=== PATIENT | female | born 1950 | race Caucasian/White ===

== ENCOUNTER → 2018-09-23 12:36 | Outpatient (CLI) | payer MEDICARE, SELFPAY ==
[2018-09-23 14:34] LABS: Alanine Aminotransferase 33 IU/L (9-52); Albumin 4.2 g/dL (3.5-5.0); Albumin Globulin Ratio 1.6 (1.0-2.8); Alkaline Phosphatase 62 U/L (38-126); Aspartate Aminotransferase 26 IU/L (14-36); BUN Creatinine Ratio 22.9 (6-22); Bilirubin Total 0.5 mg/dL (0.2-1.3); Blood Urea Nitrogen 16 mg/dL (7-17); Calcium 9.6 mg/dL (8.4-10.2); Carbon Dioxide 31 mmol/L (22-32); Chloride 101 mmol/L (98-107); Cholesterol 178 mg/dL (140-199); Estimated Glomerular Filt Rate > 60.0 mL/min (>60); Globulin 2.6 g/dL (1.7-4.1); Glucose 100 mg/dL (80-110); HDL Cholesterol 72 mg/dL (40-60); HEMOLYSIS < 15 (0-50); LDL Cholesterol Calculated 81 mg/dL (<100); Potassium 4.3 mmol/L (3.4-5.1); Sodium 140 mmol/L (137-145); Total Protein 6.8 g/dL (6.3-8.2); Triglycerides 123 mg/dL (35-150)
== END ==
PROVIDERS: Family Provider Family Medicine; PCP Family Medicine; Visit Provider Family Medicine
DX: I10 Essential (primary) hypertension (principal); E66.9 Obesity, unspecified
CPT/HCPCS: 36415; 80053; 80061

== ENCOUNTER 2018-11-19 06:41 | Day surgery (SDC) | payer MEDICARE, SELFPAY ==
[2018-11-16 11:51] VITALS: BMI 31.9
[2018-11-19] VITALS (9 sets, daily range): BP systolic 71–136; BP diastolic 41–81; PULSE 57–70; RESP 11–16; TEMP 36.1–36.4; O2SAT 92–100; BMI 31.9
--- NOTE | 2018-11-19 | DI.RAD.S_ITS ---
PROCEDURE: XR ANKLE RT MIN 3V INDICATIONS: Intraoperative imaging for ankle surgery. TECHNIQUE: 7 intraoperative fluoroscopic spot views of the ankle were acquired. COMPARISON: None. FINDINGS: Bones: No fractures or dislocations. There has been hardware fixation with a lateral compression plate and medial malleolar lag screw. There is widening of the syndesmosis. Subsequent imaging demonstrates pin traversing the syndesmosis with placement of syndesmotic band and anatomic realignment of syndesmosis and ankle mortise. Soft tissues: No unexpected changes. IMPRESSION: Intraoperative fluoroscopy for placement of syndesmotic band and realignment of ankle mortise. Dictated by: Alecia Reynolds M.D. on 11/19/2018 at 13:16 Approved by: Alecia Reynolds M.D. on 11/19/2018 at 13:18
--- NOTE | 2018-11-19 07:01 | PM.PREOP ---
Pre-operative Note Interval Note History & Physical reviewed/Exam performed by Physician: Yes Changes to H&P: No
[2018-11-19] MEDS: fentaNYL 100 MCG/2 ML INJ 50 MCG IV ×2 (07:30→07:47)
[2018-11-19] MEDS: MIDAZOLAM 2 MG/2 ML VIAL 0.5 MG IV ×2 (07:30→07:47)
--- NOTE | 2018-11-19 07:46 | P.OP_ITS ---
Operative Date/Time/Diagnoses Date of procedure: 11/19/18 Time of procedure: 08:30 Pre-op diagnosis: Closed trimalleolar ankle fracture right, S82.851 Syndesmotic disruption right ankle s 93.431 Mechanical complication associated with orthopedic device, loss of reduction brady t 84.498 Post-op diagnosis: same Procedure & Clinicians Procedure: 1. Open reduction internal fixation syndesmosis ankle right CPT code 41036 2. Removal implant deep right CPT code 32024 3. Exam under anesthesia ankle right CPT code 53969 Same procedure as scheduled: Yes Indications: Operative indications: The patient has an unstable and displaced right trimalleolar ankle fracture. She had surgery in [place] on 10/20/2018 but has shown evidence of medial clear space widening and unstable syndesmosis and was indicated for surgical reduction and stabilization. The patient was counseled regarding the rationale for this and the risks of surgery. The risks include infection, bleeding, damage to nerves and blood vessels, or tendons, wound dehiscence, malunion, nonunion, persistence of pain, posttraumatic arthritis, DVT, PE, inability to return to her desired level of function, hardware breakage or prominence, generalized dissatisfaction with the procedure, need for additional procedures, cardiopulmonary complications and . The patient expressed understanding of all the risks and elected to proceed. Consent was signed in the office. Patient understands that recovery is variable and may require up to a 1 year. The patient also understands that it is critical to strictly elevate the operative leg for the 1st 2 weeks after surgery to control swelling and pain. The patient was counseled that no way will be allowed on the surgical leg for approximately 6 weeks or until the patient is instructed that it is safe to initiate weight-bearing. The patient expressed full understanding of all these issues would like to proceed with surgery. The patient was additionally counseled on cessation of all nicotine products to promote bone and wound healing. DVT prophylaxis was discussed and will be completed with aspirin 325 mg b.i.d. starting postoperative day 1. She has no personal history of blood clots and is not on hormone replacement she does not smoke. Surgeon: Marissa Worrell Click Yes if Unassisted: Yes Anesthesia Type: General and Peripheral nerve block Operative Notes Findings: Exam under anesthesia demonstrated widening of the syndesmosis and medial clear space consistent with syndesmosis disruption. Open exposure of the anterior syndesmosis demonstrated diastasis and gross motion above physiologic limits. The ATFL was attenuated with heavy scarring. The syndesmosis was debrided the joint also exposed and the Angelia sign inspected and reduced. Reduction of the syndesmosis was evaluated directly and on fluoroscopic imaging and then secured with an Arthrex suture button device. Repeat examination under anesthesia with fluoroscopy and direct visualization demonstrated a stable syndesmosis. Closure Type: primary Specimen(s): none sent Prosthetic devices, grafts, tissues, transplants, or devices: Arthrex tight rope suture button device Applied: other (Splint) Estimated Blood Loss (mL): 2 Blood products transfused: none Tourniquet time (min): 44 Procedure in detail: In the preoperative holding area, the appropriate limb and sites were marked, consent was again reviewed with the patient and all questions answered. The patient was brought to the operating room, placed on the operating table and given anesthetic. Following successful levels of anesthesia, the patient was appropriately padded, position secured to the table. An SCD was placed on the contralateral leg. All bony prominences were well padded. A well-padded thigh tourniquet was placed. The surgical leg was then prepped and draped in the usual sterile fashion. A formal time-out procedure was completed confirming the patient, site and side of surgery and administration of appropriate preoperative antibiotics. All were in agreement. Patient had a preoperative peripheral nerve block placed by the anesthesia team for postoperative pain control. Exam under anesthesia: Large fluoroscopy unit was brought into the operative field sterilely. A live exam under fluoroscopic visualization in AP and mortise imaging with external rotation stress testing demonstrated widening of the syndesmosis and clear space. Once this was confirmed decision was made to proceed with open reduction internal fixation of the syndesmosis. An Esmarch bandage was utilized to exsanguinate the limb and the tourniquet was raised on the thigh to 300 mmHg. Attention was turned to the patient's previous lateral incision over the fibula. Using the fluoroscopy unit to the level of the fracture 4th most distal screw and incisura and fibular tip were marked out. The distal 2/3 of the incision was reopened from the level of the 4th screw to the fibular tip. Care was taken to dissect between the subcutaneous and deep tissues and a flap was retracted medially to expose the syndesmosis. There was a small but several mm diastasis noted at the syndesmosis and a [place] was easily passed. The AITFL remnants were torn and there was a scar tissue. The joint was exposed the talar dome demonstrated no evidence of osteochondral defect. The syndesmosis was debrided and reduced restoring the Angelia sign at the joint line. This was done with thumb pressure and then a 2.0 K-wire was placed to hold the fixation. Fluoroscopic evaluation confirmed reduction of the syndesmosis and symmetric mortise space is proximally and medially. A lateral image was taken and compared to a lateral of the contralateral side previously obtained. With a appropriate reduction attention turned to placement of permanent syndesmotic fixation. Hardware removal: To achieve an appropriate position 2-1/2 cm above the joint line the 4th small frag screw from the distal aspect of the plate was selected as the site for suture button device placement. Therefore dissection was completed through the soft tissues directly over the plate through the previous lateral wound to expose the 4th screw. This was removed with the small frag screwdriver and explanted. ORIF syndesmosis: Next the solid drill for the Arthrex tight rope XP device was drilled directly through the fibula to the tibia in a Quadra cortical fashion making sure there was good central bone purchase parallel to the joint line. This was completed under fluoroscopic guidance. Next the suture button device and delivery instruments were passed through the drill hole and out the medial cortex. The device was deployed and the sutures released. The button was slid down to bone and tightened. The K-wire was removed and final tightening completed. Final fluoroscopic imaging was obtained in the AP mortise and lateral planes confirming reduction and hardware placement and appropriate improved alignment of the mortise with symmetric proximal and medial clear spaces. The tourniquet was released and hemostasis achieved. The sutures were cut the wound was irrigated with copious saline. Two 0 Vicryl suture was used to repair the AI TFL remnants. Wound was closed in layers with 2 O Vicryl 3 O Vicryl 4 0 Monocryl and 3 O nylon. A Xeroform gauze Webril ABD pad and well-padded stirrup splint was placed. Patient was woken from anesthesia and taken to the PACU in good condition. There no immediate complications from this procedure. All counts were correct. Complications: none Condition: stable Disposition: PACU Plan for aftercare: Postoperative plan: Patient will be nonweightbearing on the surgical leg. They will start taking aspirin 325 mg b.i.d. for DVT prophylaxis on postop day 1, while she is nonweightbearing. The patient will follow up in 2 weeks for wound check and change to boot. At this time we will go into a boot start early range of motion will continue to be nonweightbearing. X-ray will be taken.
[2018-11-19] MEDS: CEFAZOLIN 2 GM/100 ML FROZ.PIGGY IV (08:08)
--- NOTE | 2018-11-19 08:28 | SUR.OPER ---
Supine on padded OR bed, head on pillow, arms secured on padded arm boards at <90 degrees abduction, legs uncrossed, safety belt at abdomen, tape over blanket over left lower leg. Right leg elevated on bath blankets and under control of surgeon.
[2018-11-19] MEDS: LACTATED RINGERS 1,000 ML 42 ML IV (08:54)
--- NOTE | 2018-11-19 08:59 | SUR.PREOP ---
Block start time [0730] . Monitoring initiated and maintained throughout procedure. Oxygen and medications given per anesthesiologist instructions. Patient remained stable throughout procedure, no adverse reactions noted. Block end time [0756].
[2018-11-19] MEDS: OXYCODONE IR 5 MG TABLET PO (11:06)
== END 2018-11-19 11:32 | disposition home or self-care (01) ==
PROVIDERS: Family Provider Family Medicine; PCP Family Medicine; Visit Provider Orthopaedic Surgery Foot and Ankle Surgery
PROC: 0SSF04Z Reposition Right Ankle Joint with Internal Fixation Device, Open Approach (ICD-10-PCS; CPT 27829; principal; 2018-11-19 07:45)
DX: T84.223A Displacement of internal fixation device of bones of foot and toes, initial encounter (principal); S82.851A Displaced trimalleolar fracture of right lower leg, initial encounter for closed fracture; W10.8XXA Fall (on) (from) other stairs and steps, initial encounter; I10 Essential (primary) hypertension; R73.03 Prediabetes; G89.18 Other acute postprocedural pain
CPT/HCPCS: 27829; 20680; 64450; 73610; 76000; J0690; J1100; J2250; J2704; J3010

== ENCOUNTER → 2022-11-06 14:50 | Outpatient (CLI) | payer MEDICARE, SELFPAY ==
--- NOTE | 2022-11-06 | DI.MG.S_ITS ---
BILATERAL DIGITAL SCREENING MAMMOGRAM 3D/2D WITH CAD: 11/06/2022 CLINICAL: Routine screening. Family history of breast cancer. Comparison is made to exams dated: 09/08/2016 mammogram, 09/07/2015 mammogram, 06/28/2014 mammogram, and 05/24/2013 mammogram - [facility]. There are scattered areas of fibroglandular density in both breasts (category b / 25%-50% glandular tissue). Current study was also evaluated with a Computer Aided Detection (CAD) system. There is a benign intramammary node in the right breast. No significant masses, calcifications, or other findings are seen in either breast. There has been no significant interval change. IMPRESSION: BENIGN There is no mammographic evidence of malignancy. A 1 year screening mammogram is recommended. Based on the Tyrer Cuzick model (a risk assessment model) the patient's lifetime risk is 5.9% and her 10 year risk is 4.9%. According to the ACR, ACS, and NCCN guidelines, an annual breast MRI exam along with mammogram is recommended if the patient's lifetime risk is 20% or greater. This exam was interpreted at Station ID: [id number]. NOTE: For mammograms, a report in lay terms will be sent to the patient. Approximately 15% of breast malignancies will not be visualized mammographically. In the management of a palpable breast mass, a negative mammogram must not discourage biopsy of a clinically suspicious lesion. Electronically Signed By: Demarco aguilera/jeannie:11/06/2022 16:11:56 letter sent: Normal Exam ACR BI-RADS Category 2: Benign Finding(s) 3342F
== END ==
PROVIDERS: Family Provider Family Medicine; PCP Internal Medicine; Referring Provider Internal Medicine; Visit Provider Internal Medicine
DX: Z12.31 Encounter for screening mammogram for malignant neoplasm of breast (principal); Z80.3 Family history of malignant neoplasm of breast
CPT/HCPCS: 77063; 77067

== ENCOUNTER 2023-02-16 12:00 | Outpatient (RCR) | payer MEDICARE, SELFPAY ==
--- NOTE | 2023-01-07 14:59 | PT.OIE ---
Current Diagnoses Stiffness of right hip, not elsewhere classified (01/07/23) Stiffness of left hip, not elsewhere classified (01/07/23) Stiffness of other specified joint, not elsewhere classified (01/07/23) Low back pain, unspecified (01/07/23) Past Medical History (Last Updated 11/16/18 @ 14:35 by Bri Hinojosa RN) Ankle fracture, right (10/20/18) Depression Fall (10/20/18) HTN (hypertension) Hypokalemia Past Surgical History History of carpal tunnel repair Status post tubal ligation Visit Care Team Role Provider Type Shefali Cunningham MD Attending Provider Physician Family Provider Primary Care Provider Referring Provider Specialty: Internal Medicine Address: [place], [place], [facility] Phone: Email: Physical Therapy Initial Evaluation PT-OP-A Visit Information Start: 01/07/23 17:31 Freq: Status: Active Protocol: Document 01/07/23 14:00 DCW (Rec: 01/07/23 17:39 DCW [id number]) Out-Patient Physical Therapy Visit Information Visit Information Visit Type Initial Evaluation Visit Start Time 14:00 Visit Stop Time 14:45 Total Visit Minutes 45 Visit Number 1 Number of CARD FIXER Visits 0 Evaluation Information Evaluation Date 01/07/23 PT-OP-B Current Condition Start: 01/07/23 17:31 Freq: Status: Active Protocol: Document 01/07/23 14:00 DCW (Rec: 01/07/23 17:39 DCW [id number]) Current Condition History of Current Condition Onset Date A few year history Current Complaints Low back soreness, zing into bilateral posterior hips occasionally History of Current Condition Pt is a 72 year old female presenting with a multi-year history of low back pain, with reports a 4-5x daily brief zing of pain into her posterior hips bilaterally. 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 Does improve with rest and sitting, however zing can still occur when sitting. Pt reports she [place] out of state half the year, and while gone, was recently treated for piriformis syndrome. Pt reports she is no longer getting that same pain. Treatment Goals Patient/Caregiver Goals I want to get stretching exercises so it doesn't bug me all the time. PT-OP-C Subjective Start: 01/07/23 17:31 Freq: Status: Active Protocol: Document 01/07/23 14:00 DCW (Rec: 01/07/23 17:39 DCW [id number]) OP-PT Subjective Patient Comments Patient Comments It seems to 'zing' down pretty consistently no matter what I do, but the soreness gets worse with activity. Even going on a walk with my dog, I'm sore by the end of it. Patient Questionnaires Oswestry Low Back Index Oswestry Score 9/50 = 18% Oswestry Impairment 1 to 19% Impaired (Score 1-19) OP-PT Pain Assessment Location Bilateral Lower Back Intensity 4 Scale Used Numeric (0 - 10) Description Aching,Dull PT-OP-F Manual Assessment Start: 01/07/23 17:31 Freq: Status: Active Protocol: Document 01/07/23 14:00 DCW (Rec: 01/07/23 17:54 DCW [id number]) Manual Assessments Soft Tissue Assessment Soft Tissue Mobility Assessment Moderate tone and tenderness to palpation 2/4: pain with wincing along bilateral lumbar paraspinals, hamstrings, piriformism and hip flexors PT-OP-K Range of Motion Start: 01/07/23 17:31 Freq: Status: Active Protocol: Document 01/07/23 14:00 DCW (Rec: 01/07/23 17:54 DCW [id number]) Lumbar Spine Range of Motion Lumbar Spine Active Degrees Testing Position Standing Flexion 45 Extension 10 ROM Limitations Soft Tissue Tightness,Muscle Tone PT-OP-L Special Tests Start: 01/07/23 17:31 Freq: Status: Active Protocol: Document 01/07/23 14:00 DCW (Rec: 01/07/23 17:54 DCW [id number]) Special Tests Lumbar Spine Special Tests Ash Test Results Positive bilaterally Straight Leg Raise Test Results Hamstring tightness bilaterally at 65? Slump Test Results Negative Compression Test Results Negative A-P Shearing Test Results Negative Hip Special Tests Piriformis Test Results Positive bilaterally KENRICK Test Results Negative Merna's Test Test Results Positive bilaterally PT-OP-M Strength Start: 01/07/23 17:31 Freq: Status: Active Protocol: Document 01/07/23 14:00 DCW (Rec: 01/07/23 17:54 DCW [id number]) Hip Strength Hip Manual Muscle Testing Right Flexion (L2) 4- Good- Abduction 4- Good- Adduction 4- Good- Left Flexion (L2) 3+ Fair+ Abduction 4- Good- Adduction 4- Good- Knee Strength Knee Manual Muscle Testing Right Flexion (S2) 4+ Good+ Extension (L3) 4+ Good+ Left Flexion (S2) 4+ Good+ Extension (L3) 4+ Good+ PT-OP-Q Treatments Start: 01/07/23 17:31 Freq: Status: Active Protocol: Document 01/07/23 14:00 DCW (Rec: 01/07/23 17:41 DCW [id number]) Therapeutic Exercises Supine Exercises Hip Flexor stretch Supine Exercise Name Hip flexor stretch with leg off table Side bilateral Hamstring stretch Supine Exercise Name HS stretch Side bilateral Sitting Exercises Piriformis stretch Sitting Exercise Name Seated figure-4 Side bilateral PT-OP-T Assessment and Plan Start: 01/07/23 17:31 Freq: Status: Active Protocol: Document 01/07/23 14:00 DCW (Rec: 01/08/23 15:59 DC [id number]) Physical Therapy Assessment Rehab Potential Rehabilitation Potential Good Evaluation Complexity Number of Personal Factors/Comorbidities 3 or More Number of Body Systems Impaired 3 Clinical Presentation at Evaluation Unstable Impairments Impairments Functional Activities, Functional Mobility,Pain,ROM, Soft Tissue Mobility,Strength, Tone Goals Two Impairment LE MMT reveals bilateral hip weakness (4-/5 or weaker) in all planes Detention Goal (LTG) Pt to present with B LE MMT at least 4/5 in order to demonstrate improved hip strength in order to improve stability and tone throughout hip and low back musculature LTG Duration 03/11/23 One Impairment Pt does not have an appropriate home exercise program Short Term Goal (STG) Pt to be independent and compliant with an appropriate HEP STG Duration 02/08/23 Assessment Summary Assessment Pt presents with signs and symptoms consistent with referring diagnosis. Unable to replicate any of pt's back pain or zinging sensation down into posterior hip with special testing today, lumbar vertebrae show relatively appropriate mobility with ROM and joint mobilizations. Pt does present with significant increase in muscle tone bilaterally around low back and hips, especially paraspinals, hip flexors, and piriformis. Positive Merna and Ash test indicate very tight hip flexors, which may be causing at least some of pt 's low back pain and stiffness due to psoas origin along the lumbar spine. Additionally, pt exhibits general hip weakness, testing at 4-/5 with right flexion and bilateral abd/add, as well as 3+/5 with left flexion. Pt will likely benefit from skilled therapy focusing on LE strengthening and STM/flexibility to decrease overall tone throughout musculature. Physical Therapy Plan Frequency and Duration Frequency of Treatment 2x/Week Plan of Care Start Date 01/07/23 Plan of Care End Date 03/10/23 Therapeutic Interventions Therapeutic Interventions Gait Training,Home Exercise Program,Joint Mobilizations, Manual Therapy,Neuromuscular Re-education,Patient/Caregiver Education,Self-Care/Home Management,Soft Tissue Mobilization,Therapeutic Activities,Therapeutic Exercises Modalities Cold Pack/Ice Massage,Hot Packs Next Visit Focus/Plan Next Note Type Treatment Note Next Visit Plan Strengthening, flexibility, STM
--- NOTE | 2023-01-07 15:00 | PT.OPPOC ---
Physical, Occupational & Speech Therapy At [facility] Current Diagnoses Stiffness of right hip, not elsewhere classified (01/07/23) Stiffness of left hip, not elsewhere classified (01/07/23) Stiffness of other specified joint, not elsewhere classified (01/07/23) Low back pain, unspecified (01/07/23) Visit Care Team Role Provider Type Shefali Cunningham MD Attending Provider Physician Family Provider Primary Care Provider Referring Provider Specialty: Internal Medicine Address: [place], [place], [facility] Phone: Email: Plan Of Care PT-OP-T Assessment and Plan Start: 01/07/23 17:31 Freq: Status: Active Protocol: Document 01/07/23 14:00 DCW (Rec: 01/08/23 15:59 DCW [id number]) Physical Therapy Assessment Rehab Potential Rehabilitation Potential Good Evaluation Complexity Number of Personal Factors/Comorbidities 3 or More Number of Body Systems Impaired 3 Clinical Presentation at Evaluation Unstable Impairments Impairments Functional Activities, Functional Mobility,Pain,ROM, Soft Tissue Mobility,Strength, Tone Goals Two Impairment LE MMT reveals bilateral hip weakness (4-/5 or weaker) in all planes Manager [employer] Goal (LTG) Pt to present with B LE MMT at least 4/5 in order to demonstrate improved hip strength in order to improve stability and tone throughout hip and low back musculature LTG Duration 03/11/23 One Impairment Pt does not have an appropriate home exercise program Short Term Goal (STG) Pt to be independent and compliant with an appropriate HEP STG Duration 02/08/23 Assessment Summary Assessment Pt presents with signs and symptoms consistent with referring diagnosis. Unable to replicate any of pt's back pain or zinging sensation down into posterior hip with special testing today, lumbar vertebrae show relatively appropriate mobility with ROM and joint mobilizations. Pt does present with significant increase in muscle tone bilaterally around low back and hips, especially paraspinals, hip flexors, and piriformis. Positive Merna and Ash test indicate very tight hip flexors, which may be causing at least some of pt 's low back pain and stiffness due to psoas origin along the lumbar spine. Additionally, pt exhibits general hip weakness, testing at 4-/5 with right flexion and bilateral abd/add, as well as 3+/5 with left flexion. Pt will likely benefit from skilled therapy focusing on LE strengthening and STM/flexibility to decrease overall tone throughout musculature. Physical Therapy Plan Frequency and Duration Frequency of Treatment 2x/Week Plan of Care Start Date 01/07/23 Plan of Care End Date 03/10/23 Therapeutic Interventions Therapeutic Interventions Gait Training,Home Exercise Program,Joint Mobilizations, Manual Therapy,Neuromuscular Re-education,Patient/Caregiver Education,Self-Care/Home Management,Soft Tissue Mobilization,Therapeutic Activities,Therapeutic Exercises Modalities Cold Pack/Ice Massage,Hot Packs Next Visit Focus/Plan Next Note Type Treatment Note Next Visit Plan Strengthening, flexibility, STM Plan of Care Dates Plan of Care Start Date 01/07/23 Plan of Care End Date 03/10/23 Electronically Signed by: Jorge Bean, PT 01/08/23 1600 If you are in agreement with this Plan of Care, please return a signed and dated copy. I have reviewed this Plan of Care and certify that the skilled therapy services above are required to meet the patient?s needs. Physician Signature Date Printed Name and Credentials Clinical Instructor Signature Printed Name and Credentials
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
--- NOTE | 2023-02-02 17:15 | PT.OTN ---
Current Diagnoses Stiffness of right hip, not elsewhere classified (02/02/23) Stiffness of left hip, not elsewhere classified (02/02/23) Stiffness of other specified joint, not elsewhere classified (02/02/23) Low back pain, unspecified (02/02/23) Physical Therapy Treatment Note PT-OP-A Visit Information Start: 01/07/23 17:31 Freq: Status: Active Protocol: Document 02/02/23 16:04 NBM (Rec: 02/02/23 17:12 NBM [id number]) Out-Patient Physical Therapy Visit Information Visit Information Visit Type Treatment Note Visit Start Time 16:05 Visit Stop Time 16:47 Total Visit Minutes 42 Visit Number 3 Number of PROTEOMICS SCIENTIST Visits 2 PT-OP-B Current Condition Start: 01/07/23 17:31 Freq: Status: Active Protocol: Document 01/07/23 14:00 DCW (Rec: 01/07/23 17:39 DCW [id number]) Current Condition History of Current Condition Onset Date A few year history Current Complaints Low back sorness, zing into bilateral posterior hips occasionally History of Current Condition Pt is a 72 year old female presenting with a multi-year history of low back pain, with reports a 4-5x daily brief zing of pain into her posterior hips bilaterally. 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 Does improve with rest and sitting, however zing can still occur when sitting. Pt reports she lives out of state half the year, and while gone, was recently treated for piriformis syndrome. Pt reports she is no longer getting that same pain. Treatment Goals Patient/Caregiver Goals I want to get stretching exercises so it doesn't bug me all the time. PT-OP-C Subjective Start: 01/07/23 17:31 Freq: Status: Active Protocol: Document 02/02/23 16:04 NBM (Rec: 02/02/23 17:12 NBM [id number]) OP-PT Subjective Patient Comments Patient Comments Pamela notes not change in her zining pain and sleep might be better. She hasn't tried the pillow supports yet but her L hip has not been bothering her as much so maybe the stretches have helped with that. She did walking at the [place] - the zinging happened and it just happens off and on all the time. Patient Reported Progress Same PT-OP-F Manual Assessment Start: 01/07/23 17:31 Freq: Status: Active Protocol: Document 01/07/23 14:00 DCW (Rec: 01/07/23 17:54 DCW [id number]) Manual Assessments Soft Tissue Assessment Soft Tissue Mobility Assessment Moderate tone and tenderness to palpation 2/4: pain with wincing along bilateral lumbar paraspinals, hamstrings, piriformism and hip flexors PT-OP-K Range of Motion Start: 01/07/23 17:31 Freq: Status: Active Protocol: Document 01/07/23 14:00 DCW (Rec: 01/07/23 17:54 DCW [id number]) Lumbar Spine Range of Motion Lumbar Spine Active Degrees Testing Position Standing Flexion 45 Extension 10 ROM Limitations Soft Tissue Tightness,Muscle Tone PT-OP-L Special Tests Start: 01/07/23 17:31 Freq: Status: Active Protocol: Document 01/07/23 14:00 DCW (Rec: 01/07/23 17:54 DCW [id number]) Special Tests Lumbar Spine Special Tests Ash Test Results Positive bilaterally Straight Leg Raise Test Results Hamstring tightness bilaterally at 65? Slump Test Results Negative Compression Test Results Negative A-P Shearing Test Results Negative Hip Special Tests Piriformis Test Results Positive bilaterally KENRICK Test Results Negative Merna's Test Test Results Positive bilaterally PT-OP-M Strength Start: 01/07/23 17:31 Freq: Status: Active Protocol: Document 01/07/23 14:00 DCW (Rec: 01/07/23 17:54 DCW [id number]) Hip Strength Hip Manual Muscle Testing Right Flexion (L2) 4- Good- Abduction 4- Good- Adduction 4- Good- Left Flexion (L2) 3+ Fair+ Abduction 4- Good- Adduction 4- Good- Knee Strength Knee Manual Muscle Testing Right Flexion (S2) 4+ Good+ Extension (L3) 4+ Good+ Left Flexion (S2) 4+ Good+ Extension (L3) 4+ Good+ PT-OP-Q Treatments Start: 01/07/23 17:31 Freq: Status: Active Protocol: Document 02/02/23 16:04 NBM (Rec: 02/02/23 17:12 NBM [id number]) Cardio Equipment Recumbent Elliptical (Biodex) Duration (Minutes) 6 Resistance 2 Seat Position 6 Therapeutic Exercises Supine Exercises TrA Supine Exercise Name 1. TrA. 2. TrA w/ PPT 3. w/ BKFO Bridging Side bilateral Reps/Minutes x10 Comments cues for breathwork, breathholding LTR Supine Exercise Name w/ PPT Side bilateral Reps/Minutes x10 ea IT band stretch Supine Exercise Name IT band stretch Side bilateral Equipment Used strap Reps/Minutes x30s ea Comments gentle pain-free range; Hip Flexor stretch Supine Exercise Name Hip flexor stretch with leg off table Side bilateral Reps/Minutes 1' ea Comments cues to initiate with PPT; gentle pain-free range Hamstring stretch Supine Exercise Name HS stretch w/ and w/o APs Side bilateral Equipment Used strap Reps/Minutes x30s ea Comments cued knee bend for gentle, pain-free range and no breathholding Sitting Exercises Piriformis stretch Sitting Exercise Name Supine figure-4 as per pt's HEP modification Side bilateral Equipment Used mat table Reps/Minutes x45s ea Comments cues for gentle, pain-free range Self-Care/Home Management Treatment Education Patient Education Body Mechanics,Home Exercise Program,Posture Other Education Educated pt in core (TrA) anatomy and relationship with diaphragm and pelvic floor, importance of not breathholding. I/s pt in self- monitoring TrA medial to ASIS - challenging. HEP review w/ emphasis on core engagement w/ ex and transitions, and gentle, pain- free ROM. Added to HEP: TrA progression w/ PPT and BKFO, Bridging. PT-OP-T Assessment and Plan Start: 01/07/23 17:31 Freq: Status: Active Protocol: Document 02/02/23 16:04 [facility] (Rec: 02/02/23 17:12 [facility] [id number]) Physical Therapy Assessment Assessment Summary Assessment Pamela continues to experience zinging pain down B posterior LEs and discomfort with stretches - treatment focus on core (TrA) education, PPT and importance of not breathholding, as well as gentle, pain-free range with stretches. I/s pt in self- monitoring TrA medial to ASIS - challenging. She requires cues for no breathholding, but responds well to cues for PPT and drawing belly button towards sp w/ positive feedback response- core self- awareness improves by end of session and pt reports one zinging pain down post B LEs w / transition from lying to sitting EOB this session, although cued for TrA activation and no breathholding. Added to HEP: TrA progression w/ PPT and BKFO, Bridging. Physical Therapy Plan Frequency and Duration Frequency of Treatment 2x/Week Plan of Care Start Date 01/07/23 Plan of Care End Date 03/10/23 Therapeutic Interventions Therapeutic Interventions Gait Training,Home Exercise Program,Joint Mobilizations, Manual Therapy,Neuromuscular Re-education,Patient/Caregiver Education,Self-Care/Home Management,Soft Tissue Mobilization,Therapeutic Activities,Therapeutic Exercises Modalities Cold Pack/Ice Massage,Hot Packs Next Visit Focus/Plan Next Note Type Treatment Note Next Visit Plan I/s in self-STM to ITB/quads w / rolling pin - HO already given. Check for improvement to zinging pain down post B LEs. Continue POC. POC: Strengthening, flexibility, STM
--- NOTE | 2023-02-11 13:31 | PT.OTN ---
Current Diagnoses Stiffness of right hip, not elsewhere classified (02/11/23) Stiffness of left hip, not elsewhere classified (02/11/23) Stiffness of other specified joint, not elsewhere classified (02/11/23) Low back pain, unspecified (02/11/23) Physical Therapy Treatment Note PT-OP-A Visit Information Start: 01/07/23 17:31 Freq: Status: Active Protocol: Document 02/11/23 12:45 DCW (Rec: 02/11/23 13:31 DCW [id number]) Out-Patient Physical Therapy Visit Information Visit Information Visit Type Treatment Note Visit Start Time 12:45 Visit Stop Time 13:30 Total Visit Minutes 45 Visit Number 4 Number of SENIOR NET SOFTWARE DEVELOPER Visits 0 Evaluation Information Evaluation Date 01/07/23 PT-OP-B Current Condition Start: 01/07/23 17:31 Freq: Status: Active Protocol: Document 01/07/23 14:00 DCW (Rec: 01/07/23 17:39 DCW [id number]) Current Condition History of Current Condition Onset Date A few year history Current Complaints Low back sorness, zing into bilateral posterior hips occasionally History of Current Condition Pt is a 72 year old female presenting with a multi-year history of low back pain, with reports a 4-5x daily brief zing of pain into her posterior hips bilaterally. 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 Does improve with rest and sitting, however zing can still occur when sitting. Pt reports she lives out of state half the year, and while gone, was recently treated for piriformis syndrome. Pt reports she is no longer getting that same pain. Treatment Goals Patient/Caregiver Goals I want to get stretching exercises so it doesn't bug me all the time. PT-OP-C Subjective Start: 01/07/23 17:31 Freq: Status: Active Protocol: Document 02/11/23 12:45 DCW (Rec: 02/11/23 13:31 DCW [id number]) OP-PT Subjective Patient Comments Patient Comments I can't really tell a difference, it seems about the same. PT-OP-F Manual Assessment Start: 01/07/23 17:31 Freq: Status: Active Protocol: Document 01/07/23 14:00 DCW (Rec: 01/07/23 17:54 DCW [id number]) Manual Assessments Soft Tissue Assessment Soft Tissue Mobility Assessment Moderate tone and tenderness to palpation 2/4: pain with wincing along bilateral lumbar paraspinals, hamstrings, piriformism and hip flexors PT-OP-K Range of Motion Start: 01/07/23 17:31 Freq: Status: Active Protocol: Document 01/07/23 14:00 DCW (Rec: 01/07/23 17:54 DCW [id number]) Lumbar Spine Range of Motion Lumbar Spine Active Degrees Testing Position Standing Flexion 45 Extension 10 ROM Limitations Soft Tissue Tightness,Muscle Tone PT-OP-L Special Tests Start: 01/07/23 17:31 Freq: Status: Active Protocol: Document 01/07/23 14:00 DCW (Rec: 01/07/23 17:54 DCW [id number]) Special Tests Lumbar Spine Special Tests Ash Test Results Positive bilaterally Straight Leg Raise Test Results Hamstring tightness bilaterally at 65? Slump Test Results Negative Compression Test Results Negative A-P Shearing Test Results Negative Hip Special Tests Piriformis Test Results Positive bilaterally KENRICK Test Results Negative Merna's Test Test Results Positive bilaterally PT-OP-M Strength Start: 01/07/23 17:31 Freq: Status: Active Protocol: Document 01/07/23 14:00 DCW (Rec: 01/07/23 17:54 DCW [id number]) Hip Strength Hip Manual Muscle Testing Right Flexion (L2) 4- Good- Abduction 4- Good- Adduction 4- Good- Left Flexion (L2) 3+ Fair+ Abduction 4- Good- Adduction 4- Good- Knee Strength Knee Manual Muscle Testing Right Flexion (S2) 4+ Good+ Extension (L3) 4+ Good+ Left Flexion (S2) 4+ Good+ Extension (L3) 4+ Good+ PT-OP-Q Treatments Start: 01/07/23 17:31 Freq: Status: Active Protocol: Document 02/11/23 12:45 DCW (Rec: 02/11/23 13:31 DCW [id number]) Therapeutic Exercises Supine Exercises Piriformis Stretch Supine Exercise Name Fingure-4, Knee to opposite shoulder Hamstring stretch Supine Exercise Name HS stretch Side bilateral Equipment Used strap Reps/Minutes x30s ea Standing Exercises Pallof Press Standing Exercise Name Pallof Press Side bilateral Resistance Green T-band Extension Standing Exercise Name Hip Extension Side bilateral Resistance [place] Other Exercises Resisted Ambulation Other Exercise Name Resisted Ambulation Resistance [place] Manual Therapy Treatment Soft Tissue Mobilization Hip Flexors Body Location B Hip Flexors Mobilization Type Strumming,Sustained Pressure Intensity/Depth Moderate Body Position Hooklying Quads, ITB Body Location B quads, ITB Mobilization Type Strumming,Sustained Pressure, Other Intensity/Depth Moderate Body Position Hooklying Manual Traction Lower Extremity Details B Long-axis LE traction Body Position Supine Comments /c strap PT-OP-T Assessment and Plan Start: 01/07/23 17:31 Freq: Status: Active Protocol: Document 02/11/23 12:45 DCW (Rec: 02/11/23 13:31 DCW [id number]) Physical Therapy Assessment Impairments Impairments Functional Activities, Functional Mobility,Pain,ROM, Soft Tissue Mobility,Strength, Tone Goals Two Impairment LE MMT reveals bilateral hip weakness (4-/5 or weaker) in all planes [facility] Goal (LTG) Pt to present with B LE MMT at least 4/5 in order to demonstrate improved hip strength in order to improve stability and tone throughout hip and low back musculature LTG Duration 03/11/23 One Impairment Pt does not have an appropriate home exercise program Short Term Goal (STG) Pt to be independent and compliant with an appropriate HEP STG Duration 02/08/23 Assessment Summary Assessment Continued to focus on STM and stretching in order to assist pt in improving mobility and decreasing tone in low back and hips. Added Pallof Press to HEP for assistance in core strengthening. Physical Therapy Plan Frequency and Duration Frequency of Treatment 2x/Week Plan of Care Start Date 01/07/23 Plan of Care End Date 03/10/23 Therapeutic Interventions Therapeutic Interventions Gait Training,Home Exercise Program,Joint Mobilizations, Manual Therapy,Neuromuscular Re-education,Patient/Caregiver Education,Self-Care/Home Management,Soft Tissue Mobilization,Therapeutic Activities,Therapeutic Exercises Modalities Cold Pack/Ice Massage,Hot Packs Next Visit Focus/Plan Next Note Type Treatment Note Next Visit Plan Check for improvement to zinging pain down post B LEs. Continue POC. POC: Strengthening, flexibility, STM
--- NOTE | 2023-02-16 12:41 | PT.OTN ---
Current Diagnoses Stiffness of right hip, not elsewhere classified (02/16/23) Stiffness of left hip, not elsewhere classified (02/16/23) Stiffness of other specified joint, not elsewhere classified (02/16/23) Low back pain, unspecified (02/16/23) Physical Therapy Treatment Note PT-OP-A Visit Information Start: 01/07/23 17:31 Freq: Status: Active Protocol: Document 02/16/23 12:00 DCW (Rec: 02/16/23 12:41 DCW [id number]) Out-Patient Physical Therapy Visit Information Visit Information Visit Type Treatment Note Visit Start Time 12:00 Visit Stop Time 12:45 Total Visit Minutes 45 Visit Number 5 Number of MANAGER WEB Visits 0 Evaluation Information Evaluation Date 01/07/23 PT-OP-B Current Condition Start: 01/07/23 17:31 Freq: Status: Active Protocol: Document 01/07/23 14:00 DCW (Rec: 01/07/23 17:39 DCW [id number]) Current Condition History of Current Condition Onset Date A few year history Current Complaints Low back sorness, zing into bilateral posterior hips occasionally History of Current Condition Pt is a 72 year old female presenting with a multi-year history of low back pain, with reports a 4-5x daily brief zing of pain into her posterior hips bilaterally. 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 Does improve with rest and sitting, however zing can still occur when sitting. Pt reports [place] out of [place] half the year, and while gone, was recently treated for piriformis syndrome. Pt reports she is no longer getting that same pain. Treatment Goals Patient/Caregiver Goals I want to get stretching exercises so it doesn't bug me all the time. PT-OP-C Subjective Start: 01/07/23 17:31 Freq: Status: Active Protocol: Document 02/16/23 12:00 DCW (Rec: 02/16/23 12:41 DCW [id number]) OP-PT Subjective Patient Comments Patient Comments I think it feels better, pt notes she has been using a massage gun on her legs, has felt like things are moving better. PT-OP-F Manual Assessment Start: 01/07/23 17:31 Freq: Status: Active Protocol: Document 01/07/23 14:00 DCW (Rec: 01/07/23 17:54 TXW [id number]) Manual Assessments Soft Tissue Assessment Soft Tissue Mobility Assessment Moderate tone and tenderness to palpation 2/4: pain with wincing along bilateral lumbar paraspinals, hamstrings, piriformism and hip flexors PT-OP-K Range of Motion Start: 01/07/23 17:31 Freq: Status: Active Protocol: Document 01/07/23 14:00 DCW (Rec: 01/07/23 17:54 TXW [id number]) Lumbar Spine Range of Motion Lumbar Spine Active Degrees Testing Position Standing Flexion 45 Extension 10 ROM Limitations Soft Tissue Tightness,Muscle Tone PT-OP-L Special Tests Start: 01/07/23 17:31 Freq: Status: Active Protocol: Document 01/07/23 14:00 DCW (Rec: 01/07/23 17:54 [facility] [id number]) Special Tests Lumbar Spine Special Tests Ash Test Results Positive bilaterally Straight Leg Raise Test Results Hamstring tightness bilaterally at 65? Slump Test Results Negative Compression Test Results Negative A-P Shearing Test Results Negative Hip Special Tests Piriformis Test Results Positive bilaterally KENRICK Test Results Negative Merna's Test Test Results Positive bilaterally PT-OP-M Strength Start: 01/07/23 17:31 Freq: Status: Active Protocol: Document 01/07/23 14:00 DCW (Rec: 01/07/23 17:54 TXW [id number]) Hip Strength Hip Manual Muscle Testing Right Flexion (L2) 4- Good- Abduction 4- Good- Adduction 4- Good- Left Flexion (L2) 3+ Fair+ Abduction 4- Good- Adduction 4- Good- Knee Strength Knee Manual Muscle Testing Right Flexion (S2) 4+ Good+ Extension (L3) 4+ Good+ Left Flexion (S2) 4+ Good+ Extension (L3) 4+ Good+ PT-OP-Q Treatments Start: 01/07/23 17:31 Freq: Status: Active Protocol: Document 02/16/23 12:00 DCW (Rec: 02/16/23 12:41 DCW [id number]) Gym Equipment Therapeutic Ball Pelvic tilts/circles Exercise Details Pelvic tilts/circles Ball Size/Color Red - 55 cm Body Position Sitting Therapeutic Exercises Supine Exercises Piriformis Stretch Supine Exercise Name Figure-4, Knee to opposite shoulder Hamstring stretch Supine Exercise Name HS stretch Side bilateral Equipment Used strap Reps/Minutes x30s ea Standing Exercises BOSU Lunge Standing Exercise Name BOSU Lunge Side bilateral Extension Standing Exercise Name Hip Extension Side bilateral Resistance [place] Other Exercises Resisted Ambulation Other Exercise Name Resisted Side-stepping Resistance [place] Manual Therapy Treatment Soft Tissue Mobilization Hip Flexors Body Location B Hip Flexors Mobilization Type Strumming,Sustained Pressure Intensity/Depth Moderate Body Position Hooklying Quads, ITB Body Location B quads, ITB Mobilization Type Strumming,Sustained Pressure, Other Intensity/Depth Moderate Body Position Hooklying Manual Traction Lower Extremity Details B Long-axis LE traction Body Position Supine Comments /c strap PT-OP-T Assessment and Plan Start: 01/07/23 17:31 Freq: Status: Active Protocol: Document 02/16/23 12:00 DCW (Rec: 02/16/23 12:41 DCW [id number]) Physical Therapy Assessment Impairments Impairments Functional Activities, Functional Mobility,Pain,ROM, Soft Tissue Mobility,Strength, Tone Goals Two Impairment LE MMT reveals bilateral hip weakness (4-/5 or weaker) in all planes Half-Way Goal (LTG) Pt to present with B LE MMT at least 4/5 in order to demonstrate improved hip strength in order to improve stability and tone throughout hip and low back musculature LTG Duration 03/11/23 One Impairment Pt does not have an appropriate home exercise program Short Term Goal (STG) Pt to be independent and compliant with an appropriate HEP STG Duration 02/08/23 Assessment Summary Assessment Pt much more mobile with less overall pain following STM last week and addition of self -massage at home. Continue to focus on strengthening as tolerated, in addition to improving flexibility and tone management. Physical Therapy Plan Frequency and Duration Frequency of Treatment 2x/Week Plan of Care Start Date 01/07/23 Plan of Care End Date 03/10/23 Therapeutic Interventions Therapeutic Interventions Gait Training,Home Exercise Program,Joint Mobilizations, Manual Therapy,Neuromuscular Re-education,Patient/Caregiver Education,Self-Care/Home Management,Soft Tissue Mobilization,Therapeutic Activities,Therapeutic Exercises Modalities Cold Pack/Ice Massage,Hot Packs Next Visit Focus/Plan Next Note Type Treatment Note Next Visit Plan Check for improvement to zinging pain down post B LEs. Continue POC. POC: Strengthening, flexibility, STM
--- NOTE | 2023-08-25 11:34 | PT.OPDS ---
Current Diagnoses Stiffness of right hip, not elsewhere classified (02/16/23) Stiffness of left hip, not elsewhere classified (02/16/23) Stiffness of other specified joint, not elsewhere classified (02/16/23) Low back pain, unspecified (02/16/23) Visit Care Team Role Provider Type Shefali Cunningham MD Attending Provider Physician Family Provider Primary Care Provider Referring Provider Specialty: Internal Medicine Address: [place], [place], [facility] Email: Visit Number Visit Number 5 Discharge Summary PT-OP-B Current Condition Start: 01/07/23 17:31 Freq: Status: Active Protocol: Document 01/07/23 14:00 DCW (Rec: 01/07/23 17:39 DCW [id number]) Current Condition History of Current Condition Onset Date A few year history Current Complaints Low back sorness, zing into bilateral posterior hips occasionally History of Current Condition Pt is a 72 year old female presenting with a multi-year history of low back pain, with reports a 4-5x daily brief zing of pain into her posterior hips bilaterally. 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 Does improve with rest and sitting, however zing can still occur when sitting. Pt reports she lives out of state half the year, and while gone, was recently treated for piriformis syndrome. Pt reports she is no longer getting that same pain. Treatment Goals Patient/Caregiver Goals I want to get stretching exercises so it doesn't bug me all the time. PT-OP-C Subjective Start: 01/07/23 17:31 Freq: Status: Active Protocol: Document 02/16/23 12:00 DCW (Rec: 02/16/23 12:41 DCW [id number]) OP-PT Subjective Patient Comments Patient Comments I think it feels better, pt notes she has been using a massage gun on her legs, has felt like things are moving better. PT-OP-F Manual Assessment Start: 01/07/23 17:31 Freq: Status: Active Protocol: Document 01/07/23 14:00 DCW (Rec: 01/07/23 17:54 DCW [id number]) Manual Assessments Soft Tissue Assessment Soft Tissue Mobility Assessment Moderate tone and tenderness to palpation 2/4: pain with wincing along bilateral lumbar paraspinals, hamstrings, piriformism and hip flexors PT-OP-K Range of Motion Start: 01/07/23 17:31 Freq: Status: Active Protocol: Document 01/07/23 14:00 DCW (Rec: 01/07/23 17:54 DCW [id number]) Lumbar Spine Range of Motion Lumbar Spine Active Degrees Testing Position Standing Flexion 45 Extension 10 ROM Limitations Soft Tissue Tightness,Muscle Tone PT-OP-L Special Tests Start: 01/07/23 17:31 Freq: Status: Active Protocol: Document 01/07/23 14:00 DCW (Rec: 01/07/23 17:54 DCW [id number]) Special Tests Lumbar Spine Special Tests Ash Test Results Positive bilaterally Straight Leg Raise Test Results Hamstring tightness bilaterally at 65? Slump Test Results Negative Compression Test Results Negative A-P Shearing Test Results Negative Hip Special Tests Piriformis Test Results Positive bilaterally KENRICK Test Results Negative Merna's Test Test Results Positive bilaterally PT-OP-M Strength Start: 01/07/23 17:31 Freq: Status: Active Protocol: Document 01/07/23 14:00 DCW (Rec: 01/07/23 17:54 DCW [id number]) Hip Strength Hip Manual Muscle Testing Right Flexion (L2) 4- Good- Abduction 4- Good- Adduction 4- Good- Left Flexion (L2) 3+ Fair+ Abduction 4- Good- Adduction 4- Good- Knee Strength Knee Manual Muscle Testing Right Flexion (S2) 4+ Good+ Extension (L3) 4+ Good+ Left Flexion (S2) 4+ Good+ Extension (L3) 4+ Good+ PT-OP-T Assessment and Plan Start: 01/07/23 17:31 Freq: Status: Active Protocol: Document 08/25/23 11:33 DCW (Rec: 08/25/23 11:33 DCW [id number]) Physical Therapy Assessment Assessment Summary Assessment Pt has not been seen in more than six months. Will be discharged from skilled therapy, will require a new referral in order to return in the future. Physical Therapy Plan Discharge Physical Therapy Discharge Reasons No Longer Attending PT
== END 2023-08-26 10:22 | disposition home or self-care (01) ==
LOC: PHYS 12:00
PROVIDERS: Family Provider Internal Medicine; PCP Internal Medicine; Referring Provider Internal Medicine; Visit Provider Internal Medicine
DX: M54.50 Low back pain, unspecified (principal); M25.652 Stiffness of left hip, not elsewhere classified; M25.69 Stiffness of other specified joint, not elsewhere classified; M25.651 Stiffness of right hip, not elsewhere classified
CPT/HCPCS: 97110; 97140; 97162; 97535

== ENCOUNTER → 2023-11-09 15:54 | Outpatient (CLI) | payer MEDICARE, SELFPAY ==
--- NOTE | 2023-11-09 | DI.MG.S_ITS ---
BILATERAL DIGITAL SCREENING MAMMOGRAM 3D/2D WITH CAD: 11/09/2023 CLINICAL: Routine screening. Family history of breast cancer. Comparison is made to exams dated: 11/06/2022 mammogram, 09/08/2016 mammogram, and 09/07/2015 mammogram - [facility]. There are scattered areas of fibroglandular density in both breasts (category b / 25%-50% glandular tissue). Current study was also evaluated with a Computer Aided Detection (CAD) system. There is a benign intramammary node in the right breast. No significant masses, calcifications, or other findings are seen in either breast. There has been no significant interval change. IMPRESSION: BENIGN There is no mammographic evidence of malignancy. A 1 year screening mammogram is recommended. Based on the Tyrer Cuzick model (a risk assessment model) the patient's lifetime risk is 5.5% and her 10 year risk is 5.0%. According to the ACR, ACS, and NCCN guidelines, an annual breast MRI exam along with mammogram is recommended if the patient's lifetime risk is 20% or greater. This exam was interpreted at Station ID: [id number]. NOTE: For mammograms, a report in lay terms will be sent to the patient. Approximately 15% of breast malignancies will not be visualized mammographically. In the management of a palpable breast mass, a negative mammogram must not discourage biopsy of a clinically suspicious lesion. Electronically Signed By: Herman [email or web address]/[email or web address]:11/10/2023 17:33:12 letter sent: Normal Exam ACR BI-RADS Category 2: Benign Finding(s) 3342F
== END ==
PROVIDERS: Family Provider Internal Medicine; PCP Internal Medicine; Referring Provider Internal Medicine; Visit Provider Internal Medicine
DX: Z12.31 Encounter for screening mammogram for malignant neoplasm of breast (principal); Z80.3 Family history of malignant neoplasm of breast; R92.323 Mammographic fibroglandular density, bilateral breasts
CPT/HCPCS: 77063; 77067

== ENCOUNTER → 2025-01-18 16:27 | Outpatient (CLI) | payer MEDICARE, SELFPAY ==
--- NOTE | 2025-01-18 16:29 | DI.MG.S_ITS ---
MM screening mammo BI: 01/18/2025. BI-RADS: 1 CLINICAL: 74-year old female for bilateral screening mammogram. Tyrer-Cuzick lifetime risk of 5.6%. Current reported family history of breast cancer: mother. PRIOR EXAMS 11/09/2023, 11/06/2022, 09/08/2016, 09/07/2015. MAMMOGRAPHY TECHNIQUE: 2D and 3D (tomosynthesis) digital mammographic views obtained, with additional images as needed for full coverage. Current study was also evaluated with a Computer Aided Detection (CAD) system. DENSITY B. There are scattered areas of fibroglandular density. MAMMOGRAPHY FINDINGS Bilateral: No suspicious mass, asymmetry, microcalcification, or other abnormality seen. IMPRESSION: * No evidence of malignancy. RECOMMENDATIONS Bilateral * Annual screening mammography. OVERALL ASSESSMENT CATEGORY BI-RADS-1: Negative. The [employer] recommends annual screening mammography beginning at age 40 for women with average risk of breast cancer. ELECTRONICALLY SIGNED: Shanna Davila M.D. on 01/19/2025 at 04:43:04 PM PT Interpreting Station ID: [id number]
== END ==
LOC: MAMMO 16:29
PROVIDERS: Family Provider Internal Medicine; PCP Internal Medicine; Referring Provider Internal Medicine; Visit Provider Internal Medicine
DX: Z12.31 Encounter for screening mammogram for malignant neoplasm of breast (principal); Z80.3 Family history of malignant neoplasm of breast
CPT/HCPCS: 77063; 77067